=== PATIENT | female | born 1955 ===

== ENCOUNTER 2018-11-02 08:18 | Day surgery (SDC) | payer MEDICARE, MEDICAID ==
[2018-10-24 09:46] VITALS: BP 126/88
[~2018-11-02] VITALS: Ht 165.1 cm; Wt 100.2 kg
[~2018-11-02 08:18] MED LIST: ALBU8.5H8 INH; AMOX-291 PO; ASPI81TA45 PO; ATOR-2 PO; DULO30CA2 PO; FENTANYL PF 100 MCG/2ML IV PRN; FURO80TA3 PO; HALOPERIDOL 5 MG/ML IV PRN; LABETALOL 5MG/ML, 20ML IV PRN; LEVO50TA5 PO; LISI5TAB7 PO; METOPROLOL 1 MG/ML, 5ML IV PRN; MORPHINE PO; OXYC10TA6 PO; PENT400T9 PO; POTA20TA6 PO; PROCHLORPERAZINE 5 MG/ML, 2ML IV PRN; PROMETHAZINE 25 MG/ML, 1ML IV PRN; SOTA80TA PO; TRAZ-137 PO; WARF-36 PO; WARF7.5T46 PO; hydrALAzine 20 MG/ML, 1ML IV PRN
[2018-11-02] MEDS ORDERED: PROPOFOL 10 MG/ML, 50ML ONE (10:04)
== END 2018-11-02 12:20 | disposition home or self-care (01) ==
LOC: OUT 08:18
PROVIDERS: ATTEND Internal Medicine Gastroenterology
DX: D12.0 Benign neoplasm of cecum (principal); D12.3 Benign neoplasm of transverse colon; D12.4 Benign neoplasm of descending colon; D12.5 Benign neoplasm of sigmoid colon; K57.30 Diverticulosis of large intestine without perforation or abscess without bleeding; K64.8 Other hemorrhoids; I48.91 Unspecified atrial fibrillation; I11.0 Hypertensive heart disease with heart failure; I50.9 Heart failure, unspecified; E03.9 Hypothyroidism, unspecified; G47.33 Obstructive sleep apnea (adult) (pediatric); Z95.0 Presence of cardiac pacemaker; Z86.73 Personal history of transient ischemic attack (TIA), and cerebral infarction without residual deficits; F32.9 Major depressive disorder, single episode, unspecified; Z90.49 Acquired absence of other specified parts of digestive tract; Z98.890 Other specified postprocedural states; Z87.891 Personal history of nicotine dependence
CPT/HCPCS: 45385; 88305; J2704; A4648

== ENCOUNTER → 2020-04-12 | Outpatient (CLI) | payer MEDICARE, MEDICAID ==
[~2020-04-12] MED LIST changes: -FENTANYL PF 100 MCG/2ML IV PRN; -HALOPERIDOL 5 MG/ML IV PRN; -LABETALOL 5MG/ML, 20ML IV PRN; -METOPROLOL 1 MG/ML, 5ML IV PRN; +PENT400T12 PO; -PENT400T9 PO; -PROCHLORPERAZINE 5 MG/ML, 2ML IV PRN; -PROMETHAZINE 25 MG/ML, 1ML IV PRN; -TRAZ-137 PO; +TRAZ-175 PO; -hydrALAzine 20 MG/ML, 1ML IV PRN; +will bring list DOS
[2020-04-12 14:07] LABS: BASOPHILS # (AUTO) 0.03 x10^3/uL (0-0.1); BASOPHILS % (AUTO) 0 % (0-1); EOSINOPHILS # (AUTO) 0.09 x10^3/uL (0-0.4); EOSINOPHILS % (AUTO) 1 % (1-7); INTERNATIONAL NORMALIZED RATIO 1.39 (0.93-1.1); LYMPHOCYTES # (AUTO) 1.29 x10^3/uL (1-3.4); LYMPHOCYTES % (AUTO) 17 % (22-44); MD NO; MEAN CORPUSCULAR HEMOGLOBIN 28.9 pg (27.0-34.8); MEAN CORPUSCULAR HGB CONC 31.9 g/dL (32.4-35.8); MEAN CORPUSCULAR VOLUME 90.8 fL (80-100); MEAN PLATELET VOLUME 9.9 fL (7.4-10.4); MONOCYTES # (AUTO) 0.79 x10^3/uL (0.2-0.8); MONOCYTES % (AUTO) 10 % (2-9); NEUTROPHILS # (AUTO) 5.41 x10^3/uL (1.8-6.8); NEUTROPHILS % (AUTO) 71 % (42-75); PLATELET COUNT 222 x10^3/uL (130-400); PROTHROMBIN TIME 14.4 Seconds (9.6-11.5); RED BLOOD COUNT 5.05 x10^6/uL (3.82-5.3); RED CELL DISTRIBUTION WIDTH 15.6 % (9.6-15.2)
[2020-04-12 14:09] LABS: ALBUMIN 3.9 g/dL (3.4-5.0); ANION GAP 5 mmol/L (5-15); CALCIUM 9.8 mg/dL (8.5-10.1); CHLORIDE 105 mmol/L (98-107)
[2020-04-12 14:12] LABS: ALANINE AMINOTRANSFERASE 26 U/L (12-78); ALKALINE PHOSPHATASE 94 U/L (45-117); CREATININE 0.92 mg/dL (0.55-1.02); TOTAL PROTEIN 7.7 g/dL (6.4-8.2)
[2020-04-12 15:23] LABS: MICROSCOPIC INDICATED
== END | disposition home or self-care (01) ==
LOC: STAR 12:14
PROVIDERS: ATTEND Neurological Surgery
DX: Z01.818 Encounter for other preprocedural examination (principal); Z11.59 Encounter for screening for other viral diseases; M48.062 Spinal stenosis, lumbar region with neurogenic claudication; M43.16 Spondylolisthesis, lumbar region
CPT/HCPCS: 36415; 80053; 81001; 85025; 85610; 85730; 87086; 87635; 93005

== ENCOUNTER 2020-07-31 07:18 | Day surgery (SDC) | payer MEDICARE, MEDICAID ==
[~2020-07-31] VITALS: Ht 165.1 cm; Wt 109.7 kg
[2020-07-31] MEDS ORDERED: FURO-92 PO (08:23)
[2020-07-31] MEDS ORDERED: ACET325T14 PO (08:27)
[2020-07-31] MEDS ORDERED: WARF-36 PO (08:27)
[2020-07-31] MEDS ORDERED: GABA300C PO (08:30)
[2020-07-31] MEDS ORDERED: GABA600T7 PO (08:30)
[2020-07-31] MEDS ORDERED: LACTATED RINGERS 1,000 ML IV SCH (08:30)
[2020-07-31] MEDS ORDERED: CHLORHEXIDINE 15 ML UDC MM ONE (08:30)
[2020-07-31] MEDS ORDERED: FENT1PAT77 TD (08:30)
[2020-07-31] MEDS ORDERED: MIDAZOLAM 1 MG/ML, 2ML ONE (08:32)
[2020-07-31] MEDS ORDERED: FENTANYL PF 250 MCG/5ML ONE (09:11)
[2020-07-31 09:15] VITALS: BP 138/91
[2020-07-31 09:21] LABS: INTERNATIONAL NORMALIZED RATIO 1.1 (0.93-1.1); PROTHROMBIN TIME 11.7 Seconds (9.6-11.5)
[2020-07-31] MEDS ORDERED: EPINEPHRINE 1 MG/ML, 1ML ONE (09:31)
[2020-07-31] MEDS ORDERED: BUPIVACAINE/PF 0.25% ONE (09:31)
[2020-07-31] MEDS ORDERED: ROCURONIUM 10MG/ML,5ML ONE (09:51)
[2020-07-31] MEDS ORDERED: ONDANSETRON 2MG/ML, 2ML ONE (09:51)
[2020-07-31] MEDS ORDERED: SUCCINYLCHOLINE 20 MG/ML, 10ML ONE (09:51)
[2020-07-31] MEDS ORDERED: PHENYLEPHRINE 10 MG/ML ONE (09:51)
[2020-07-31] MEDS ORDERED: DEXAMETHASONE 4 MG/ML, 1ML ONE (09:51)
[2020-07-31] MEDS ORDERED: PROPOFOL 10 MG/ML, 20ML ONE (09:51)
[2020-07-31] MEDS ORDERED: CEFAZOLIN 1,000 MG ONE (09:51)
[2020-07-31] MEDS ORDERED: DIPHENHYDRAMINE 50 MG/ML, 1ML IVPush PRN (10:30)
[2020-07-31] MEDS ORDERED: OXYcodone 5 MG/5 ML ORAL.SOL UDC PO PRN (10:30)
[2020-07-31] MEDS ORDERED: PROMETHAZINE 25 MG/ML, 1ML IVPush PRN (10:30)
[2020-07-31] MEDS ORDERED: ONDANSETRON 2MG/ML, 2ML IVPush PRN (10:30)
[2020-07-31] MEDS ORDERED: LABETALOL 5MG/ML, 20ML IV PRN (10:30)
[2020-07-31] MEDS ORDERED: ALBUTEROL SULFATE 2.5 MG/3 ML NPPB PRN (10:30)
[2020-07-31] MEDS ORDERED: PROMETHAZINE 12.5 MG SUPP PR PRN (10:30)
[2020-07-31] MEDS ORDERED: hydrALAzine 20 MG/ML, 1ML IV PRN (10:30)
[2020-07-31] MEDS ORDERED: ACETAMINOPHEN 325 MG TABLET PO PRN (10:30)
[2020-07-31] MEDS ORDERED: HYDROmorphone 1 MG/ML, 1ML INJ IVPush PRN (10:30)
[2020-07-31] MEDS ORDERED: MEPERIDINE/PF 25MG/0.5ML IVPush PRN (10:30)
[2020-07-31] MEDS ORDERED: MIDAZOLAM 1 MG/ML, 2ML IV PRN (10:30)
[2020-07-31] MEDS ORDERED: EPHEDRINE 50 MG/ML, 1ML IVPush PRN (10:30)
[2020-07-31] MEDS ORDERED: DIAZEPAM 5 MG/ML, 2ML IVPush PRN (10:30)
[2020-07-31] MEDS ORDERED: DIAZEPAM 5 MG/ML, 2ML ONE (11:38)
[2020-07-31] MEDS ORDERED: FENTANYL PF 100 MCG/2ML ONE ×2 (11:38→12:19)
[2020-07-31] MEDS ORDERED: OXYcodone 5 MG/5 ML ORAL.SOL UDC ONE (11:39)
[2020-07-31] MEDS: FENTANYL PF 100 MCG/2ML IV PRN ×3 (11:40→12:21)
== END 2020-07-31 14:05 | disposition home or self-care (01) ==
LOC: OUT 07:18
PROVIDERS: ATTEND Orthopaedic Surgery
DX: S46.011A Strain of muscle(s) and tendon(s) of the rotator cuff of right shoulder, initial encounter (principal); S46.111A Strain of muscle, fascia and tendon of long head of biceps, right arm, initial encounter; S43.431A Superior glenoid labrum lesion of right shoulder, initial encounter; M75.41 Impingement syndrome of right shoulder; M19.011 Primary osteoarthritis, right shoulder; M94.211 Chondromalacia, right shoulder; G89.18 Other acute postprocedural pain; G47.33 Obstructive sleep apnea (adult) (pediatric); E78.5 Hyperlipidemia, unspecified; I11.0 Hypertensive heart disease with heart failure; I50.9 Heart failure, unspecified; J44.9 Chronic obstructive pulmonary disease, unspecified; E03.9 Hypothyroidism, unspecified; E66.01 Morbid (severe) obesity due to excess calories; Z79.01 Long term (current) use of anticoagulants; Z79.890 Hormone replacement therapy; Z79.899 Other long term (current) drug therapy; Z88.5 Allergy status to narcotic agent; Z95.0 Presence of cardiac pacemaker; Z82.61 Family history of arthritis; Z82.49 Family history of ischemic heart disease and other diseases of the circulatory system; X50.1XXA Overexertion from prolonged static or awkward postures, initial encounter; Y93.89 Activity, other specified; Y92.89 Other specified places as the place of occurrence of the external cause; Y99.8 Other external cause status
CPT/HCPCS: 29823; 29824; 29826; 29827; 29828; 36415; 64415; 85610; 87635; 93005; C1713; J0171; J0330; J0690; J1100; J2250; J2370; J2405; J2704; J3010; J3360; J7120